=== PATIENT | male | born 1990 | race African-American/Black ===

== ENCOUNTER 2017-10-15 16:44 | Emergency (ER) | payer SELFPAY ==
[2017-10-15] MEDS: SODIUM CHLORIDE 0.9% 1000ML 1,000 ML IV ONE ×2 (17:10→19:17)
[2017-10-15 18:15] LABS: BASOPHILS % (AUTO) 1 % (0-3); EOSINOPHILS % (AUTO) 0 % (0-9); HEMATOCRIT 49 % (39-53); LYMPHOCYTES % (AUTO) 7.48 % (10-50); MEAN CORPUSCULAR HEMOGLOBIN 30.2 pg (27.0-32.0); MEAN CORPUSCULAR HGB CONC 34.5 gm/dl (32.0-36.0); MEAN CORPUSCULAR VOLUME 87 fL (80-100); NEUTROPHILS % (AUTO) 86.8 % (37-80)
[2017-10-15 18:32] LABS: CALCIUM 10.2 mg/dl (8.5-10.1); CARBON DIOXIDE 28.4 mEq/L (21-32); CREATININE 1.86 mg/dl (0.80-1.30); POTASSIUM 5.2 mMol/L (3.5-5.1)
[2017-10-15 19:17] VITALS: TEMP 96.7; O2SAT 100
[2017-10-15 20:55] VITALS: BP 128/78; PULSE 68; RESP 18
== END 2017-10-15 20:44 | disposition home or self-care (01) | DRG 641 ==
LOC: ED 16:44
DX: E86.0 Dehydration (principal); X30.XXXA Exposure to excessive natural heat, initial encounter
CPT/HCPCS: 36415; 80048; 82550; 85025; 96365; 96366; 99282; 99285

== ENCOUNTER 2018-10-24 22:28 | Emergency (ER) | payer SELFPAY ==
[2018-10-24 22:38] VITALS: RESP 20; TEMP 96.6
[2018-10-24] MEDS ORDERED: SODIUM CHLORIDE 0.9% 1000ML 1,000 ML IV ONE (22:47)
[2018-10-24] MEDS ORDERED: ONDANSETRON HCL 4 MG/2 ML SOL IV ONE (22:48)
[2018-10-24] MEDS ORDERED: ONDANSETRON HCL 4 MG/2 ML SOL ONE (22:50)
[2018-10-25] MEDS ORDERED: SODIUM CHLORIDE 0.9% 1000ML 1,000 ML IV ONE (00:25)
[2018-10-25] MEDS ORDERED: METOCLOPRAMIDE HYDROCHLORIDE 5 MG/ML SOL IV ONE (00:27)
[2018-10-25] MEDS ORDERED: METOCLOPRAMIDE HYDROCHLORIDE 5 MG/ML SOL ONE (00:28)
[2018-10-25 01:32] VITALS: BP 153/97; PULSE 85; O2SAT 98
== END 2018-10-25 01:52 | disposition home or self-care (01) | DRG 392 ==
LOC: ED 22:28
DX: R11.2 Nausea with vomiting, unspecified (principal); E86.0 Dehydration; R42 Dizziness and giddiness
CPT/HCPCS: 96365; 96366; 96374; 96375; 99285; 99291; J2405; J2765

== ENCOUNTER 2018-12-25 00:43 | Emergency (ER) | payer SELFPAY ==
[2018-12-25 00:48] VITALS: RESP 18; TEMP 98.4
[2018-12-25] MEDS ORDERED: SODIUM CHLORIDE 0.9% 1000ML 1,000 ML IV ONE ×2 (01:13→02:40)
[2018-12-25] MEDS ORDERED: ONDANSETRON 4 MG ODT BU PRN (01:35)
[2018-12-25 01:45] LABS: CALCIUM 11.2 mg/dl (8.5-10.1); CARBON DIOXIDE 28.2 mEq/L (21-32); CREATININE 2.41 mg/dl (0.80-1.30)
[2018-12-25] MEDS ORDERED: ONDANSETRON 4 MG ODT ONE (01:52)
[2018-12-25 05:05] VITALS: BP 146/90; PULSE 57; O2SAT 96
== END 2018-12-25 04:55 | disposition home or self-care (01) | DRG 641 ==
LOC: ED 00:43
DX: E86.0 Dehydration (principal)
CPT/HCPCS: 36415; 80048; 96365; 96366; 99282; 99284; A9270-GY